=== PATIENT | female | born 1955 | race Caucasian/White ===

== ENCOUNTER → 2016-11-30 | Outpatient (CLI) | payer OTHER | LOC: FIMAGING 13:42 | DX: Z12.31 Encounter for screening mammogram for malignant neoplasm of breast (principal) | CPT/HCPCS: G0202 ==

== ENCOUNTER 2017-02-08 09:18 | Day surgery (SDC) | payer OTHER ==
[2017-02-08] MEDS ORDERED: NS 500 ML IV ONE (09:29)
[2017-02-08] MEDS ORDERED: fentaNYL 100 MCG/2 ML INJ IVP ONE (09:29)
[2017-02-08] MEDS ORDERED: MIDAZOLAM 2 MG/2 ML VIAL IVP ONE (09:29)
[2017-02-08] MEDS ORDERED: BENZOCAINE UNIT DOSE SPRAY HURRICAINE MM ONE (09:29)
[2017-02-08] MEDS ORDERED: MIDAZOLAM 2 MG/2 ML VIAL ONE (10:50)
[2017-02-08] MEDS ORDERED: fentaNYL 100 MCG/2 ML INJ ONE (10:51)
--- NOTE | 2017-02-08 10:56 | PDPROPOC ---
Sedation Plan of Care Sedation Plan of Care: vital signs stable, mental status noted, patient educated of risks, benefits, alternatives, patient can tolerate sedation ASA Classification: ASA 1 Planned drugs: fentanyl, midazolam Mallampati Score: Class 1 Mallampati Reference Image: Patient passed 3-3-2 rule?: Yes
--- NOTE | 2017-02-08 10:57 | PDGENHP ---
History & Physical Chief Complaint: MVP. History of Present Illness: Known MVP without CHF. Pertinent Past, Social, Family History: None. Relevant Physical Exam: Clear lungs, RRR with MSC and 1/6 HSM at apex Cardiorespiratory Assessment: Stable for sedation and JONY.
--- NOTE | 2017-02-08 14:53 | ECHO ---
[email or web address] [address] [address] Main: [phone] Fax: Transesophageal Echocardiography Name: DUONG ATKINS MR#: [id number] Study Date: 02/08/2017 Study Time: 10:48 AM Date of : 1955 Age: 61 year(s) Height: ( ) Weight: ( ) BSA: Gender: Female Examination: JONY Indication: Eval Mitral Valve Image Quality: Contrast: Requested by: Angelito Batista Heart Rate: Rhythm: BP: / Procedure Staff Medicaid Plan Compliance Director: Kiran Saunders Reading Physician: Angelito Batista Requesting Provider: JONY Exam Details Conclusions: Normal left ventricular size and function. LVEF 65-70%. No segmental wall motion abnormalities. Mildly dilated left atrium. Normal right-sided chamber dimensions. Intact interatrial septum on color Flow, 2 dimensional an agitated saline contrast study. Mild anterior and moderate posterior mitral leaflet prolapse. This is associated with moderate mitral regurgitation. The remainder of the cardiac valves appear normal. Trivial tricuspid regurgitation is present. The left atrial appendage is free of thrombus. Measurements: Chambers Valvular Assessment AV/MV Valvular Assessment TV/PV Normal Normal Normal Name Value Range Name Value Range Name Value Range Additional Measurements: Findings: Left Ventricle: Normal global systolic LV function. Left Atrial Appendage: Good color flow doppler in the left atrial appendage. Normal PW-Doppler flow pattern. No thrombus in left appendage. Mitral Valve: Moderate mitral valve regurgitation is present. There is mild anterior mitral valve prolapse and moderate posterior mitral valve prolapse. Patient: DUONG ATKINS Study Date: 02/08/2017 Page 1 of 2 10:48 AM Aortic Valve: The aortic valve is tri-leaflet. The aortic valve is normal in appearance and function. Tricuspid Valve: The tricuspid valve is normal in appearance and function. Pulmonic Valve: The pulmonic valve is normal in appearance and function. Aorta: The aorta is normal. Pericardium: No pericardial effusion. l1n (No Signature Object) Patient: DUONG ATKINS Study Date: 02/08/2017 Page 2 of 2 10:48 AM [id number]
--- NOTE | 2017-02-08 14:53 | ECHO ---
[email or web address] [address] [address] Main: [phone] Fax: Transesophageal Echocardiography Name: DUONG ATKINS MR#: [id number] Study Date: 02/08/2017 Study Time: 10:48 AM Date of : 1955 Age: 61 year(s) Height: ( ) Weight: ( ) BSA: Gender: Female Examination: JONY Indication: Eval Mitral Valve Image Quality: Contrast: Requested by: Angelito Batista Heart Rate: Rhythm: BP: / Procedure Staff Land Economist: Kiran Saunders Reading Physician: Angelito Batista Requesting Provider: JONY Exam Details Conclusions: Normal left ventricular size and function. LVEF 65-70%. No segmental wall motion abnormalities. Mildly dilated left atrium. Normal right-sided chamber dimensions. Intact interatrial septum on color Flow, 2 dimensional an agitated saline contrast study. Mild anterior and moderate posterior mitral leaflet prolapse. This is associated with moderate mitral regurgitation. The remainder of the cardiac valves appear normal. Trivial tricuspid regurgitation is present. The left atrial appendage is free of thrombus. Measurements: Chambers Valvular Assessment AV/MV Valvular Assessment TV/PV Normal Normal Normal Name Value Range Name Value Range Name Value Range Additional Measurements: Findings: Left Ventricle: Normal global systolic LV function. Left Atrial Appendage: Good color flow doppler in the left atrial appendage. Normal PW-Doppler flow pattern. No thrombus in left appendage. Mitral Valve: Moderate mitral valve regurgitation is present. There is mild anterior mitral valve prolapse and moderate posterior mitral valve prolapse. Patient: DUONG ATKINS Study Date: 02/08/2017 Page 1 of 2 10:48 AM Aortic Valve: The aortic valve is tri-leaflet. The aortic valve is normal in appearance and function. Tricuspid Valve: The tricuspid valve is normal in appearance and function. Pulmonic Valve: The pulmonic valve is normal in appearance and function. Aorta: The aorta is normal. Pericardium: No pericardial effusion. l1n (No Signature Object) Patient: DUONG ATKINS Study Date: 02/08/2017 Page 2 of 2 10:48 AM [id number]
--- NOTE | 2017-02-08 14:53 | ECHO ---
[email or web address] [address] [address] Main: [phone] Fax: Transesophageal Echocardiography Name: DUONG ATKINS MR#: [id number] Study Date: 02/08/2017 Study Time: 10:48 AM Date of : 1955 Age: 61 year(s) Height: ( ) Weight: ( ) BSA: Gender: Female Examination: JONY Indication: Eval Mitral Valve Image Quality: Contrast: Requested by: Angelito Batista Heart Rate: Rhythm: BP: / Procedure Staff Aerospace Mechanic: Kiran Saunders Reading Physician: Angelito Batista Requesting Provider: JONY Exam Details Conclusions: Normal left ventricular size and function. LVEF 65-70%. No segmental wall motion abnormalities. Mildly dilated left atrium. Normal right-sided chamber dimensions. Intact interatrial septum on color Flow, 2 dimensional an agitated saline contrast study. Mild anterior and moderate posterior mitral leaflet prolapse. This is associated with moderate mitral regurgitation. The remainder of the cardiac valves appear normal. Trivial tricuspid regurgitation is present. The left atrial appendage is free of thrombus. Measurements: Chambers Valvular Assessment AV/MV Valvular Assessment TV/PV Normal Normal Normal Name Value Range Name Value Range Name Value Range Additional Measurements: Findings: Left Ventricle: Normal global systolic LV function. Left Atrial Appendage: Good color flow doppler in the left atrial appendage. Normal PW-Doppler flow pattern. No thrombus in left appendage. Mitral Valve: Moderate mitral valve regurgitation is present. There is mild anterior mitral valve prolapse and moderate posterior mitral valve prolapse. Patient: DUONG ATKINS Study Date: 02/08/2017 Page 1 of 2 10:48 AM Aortic Valve: The aortic valve is tri-leaflet. The aortic valve is normal in appearance and function. Tricuspid Valve: The tricuspid valve is normal in appearance and function. Pulmonic Valve: The pulmonic valve is normal in appearance and function. Aorta: The aorta is normal. Pericardium: No pericardial effusion. l1n (No Signature Object) Patient: DUONG ATKINS Study Date: 02/08/2017 Page 2 of 2 10:48 AM [id number]
== END 2017-02-08 12:35 | disposition home or self-care (01) ==
LOC: FCATH 09:18
PROVIDERS: ATTEND Internal Medicine Cardiovascular Disease
PROC: B246ZZ4 Ultrasonography of Right and Left Heart, Transesophageal (ICD-10-PCS; principal; 2017-02-08)
DX: I34.1 Nonrheumatic mitral (valve) prolapse (principal); I49.3 Ventricular premature depolarization; Z82.49 Family history of ischemic heart disease and other diseases of the circulatory system
CPT/HCPCS: J2250; J3010

== ENCOUNTER → 2017-12-14 | Outpatient (CLI) | payer OTHER ==
[~2017-12-14] MED LIST: BACITRACIN ZINC 14.2 GM OINTTUBE TP ONE
== END ==
LOC: FIMAGING 15:05
PROVIDERS: ATTEND Physician Assistant
DX: Z12.31 Encounter for screening mammogram for malignant neoplasm of breast (principal)